=== PATIENT | female | born 1945 | race Asian ===

== ENCOUNTER 2019-03-18 11:39 | Day surgery (SDC) | payer OTHER ==
[~2019-03-18] VITALS: Ht 154.9 cm; Wt 53.4 kg
[~2019-03-18 11:39] MED LIST: PROPOFOL 200 MG INJ ONE
[2019-03-18 13:27] VITALS: Ht 154.9 cm; Wt 53.4 kg
[2019-03-18] MEDS ORDERED: AMLO2.5T78 PO (13:37)
[2019-03-18] MEDS ORDERED: METF-849 PO (13:37)
[2019-03-18] MEDS ORDERED: LOVA10TA63 PO (13:37)
[2019-03-18] MEDS ORDERED: LOSA50TA14 PO (13:37)
[2019-03-18 14:05] VITALS: BP 133/82; PULSE 90; RESP 25
--- NOTE | 2019-03-18 14:05 | PREAC ---
Date/Time of Note Date/Time of Note DATE: 03/18/19 TIME: 14:03 Anesthesia Eval and Record Evaluation Time Pre-Procedure Interview DATE: 03/18/19 TIME: 14:03 Age 73 Sex female NPO: 8 hrs Preoperative diagnosis colon screening Planned procedure Colonoscopy Past Medical History Past Medical History: Includes Cardio: HTN, Dyslipidemia Endo: Diabetes Surgery & Anesthesia Issues No known issue Meds Anticoagulation: No Beta Lynn within 24 hr: No Reason Beta Lynn not given: Pt. not on B-Lynn Reported Medications Metformin* (Glucophage*) 500 Mg Tab, 500 MG PO WITH MEALS, #90 TAB 03/18/19 Amlodipine Besylate* (Amlodipine Besylate*) 2.5 Mg Tablet, 5 MG PO DAILY, #30 TAB 03/18/19 Losartan Potassium* (Losartan Potassium*) 50 Mg Tablet, 50 MG PO DAILY, TAB 03/18/19 Lovastatin* (Lovastatin*) 10 Mg Tablet, 10 MG PO HS, TAB 03/18/19 Meds reviewed: Yes Allergies Coded Allergies: No Known Drug Allergies (Verified Allergy, Unknown, 03/18/19) Allergies Reviewed: Yes Labs/Studies Labs Reviewed: Reviewed by anesthesiologist test: N/A Studies: ECG Pre-procedure Exam Last vitals BP:112/56, P:74, Spo2:100%, T:98,9 Airway: Adequate mouth opening, Adequate thyromental dist Mallampati: Mallampati II Teeth: Normal Lung: Normal Heart: Normal ASA Physical Status ASA physical status: 3 Emergency: None Planned Anesthetic General/MAC: MAC Pre-operative Attestations Prior to commencing anesthesia and surgery, the patient was re-evaluated, there was verification of: *The patient's identity *The results of appropriate recent lab work and preoperative vital signs *The above evaluation not changing prior to induction *Anesthetic plan, risk benefits, alternative and complications discussed with patient/family; questions answered; patient/family understands, accepts and wishes to proceed. TABITHA SHAIKH MD March 18, 2019 14:05
[2019-03-18] MEDS ORDERED: LIDOCAINE 2% (SDV) 5 ML INJ ONE (14:06)
[2019-03-18] MEDS ORDERED: PROPOFOL 60 ML ONE (14:06)
[2019-03-18 14:36] VITALS: BP 86/51; RESP 20
--- NOTE | 2019-03-18 14:36 | PAC ---
Date/Time of Note Date/Time of Note DATE: 03/18/19 TIME: 14:35 Post-Anesthesia Notes Post-Anesthesia Note Activity: WNL Respiratory function: WNL Cardiovascular function: WNL Mental status: Baseline Pain reasonably controlled: Yes Hydration appropriate: Yes Nausea/Vomiting absent: Yes Comments BP:94/56, P:74, Spo2:100%, T:98,8 TABITHA SHAIKH MD March 18, 2019 14:36
[2019-03-18 14:41] VITALS: BP 88/54; PULSE 72; RESP 20
--- NOTE | 2019-03-18 14:42 | HPN ---
Date/Time of Note Date/Time of Note DATE: 03/18/19 TIME: 14:42 Interval H&P Admission Note Pt. seen H&P reviewed: No system changes TESSIE VILLAFANA March 18, 2019 14:42
[2019-03-18 14:51] VITALS: BP 126/71; PULSE 93
== END 2019-03-18 15:42 | disposition home or self-care (01) ==
LOC: GIL 11:39
PROVIDERS: ATTEND Internal Medicine Gastroenterology
DX: Z12.11 Encounter for screening for malignant neoplasm of colon (principal); K64.8 Other hemorrhoids; I10 Essential (primary) hypertension; E11.9 Type 2 diabetes mellitus without complications
CPT/HCPCS: 45378; 82962; Z7610